=== PATIENT | male | born 1945 | race Caucasian/White ===

== ENCOUNTER → 2016-09-27 | Outpatient (CLI) | payer MEDICARE, SELFPAY ==
[~2016-09-27] MED LIST: BACTROBAN OINT22 GM EXT; CARAFATE1 GM PO; CEFUROXIME500 MG PO; DIABETA 2.5 MG2.5 MG PO; DILANTIN 100 M100 MG PO; FLEXERIL 10 MG10 MG PO; FLOMAX 0.4 MG0.4 MG PO; GLUCOTROL XL 5 M5 MG PO; GLUCOTROL5 MG PO; GLUMETZA500 MG PO; JANUVIA100 MG PO; LORCET HD 10-31 EACH PO; LORTAB 7.5-3251 EACH PO; METFORMIN HCL500 MG PO; NAPROXEN500 MG PO; NEURONTIN 300300 MG PO; NEURONTIN 400400 MG PO; NORCO 7.5-3251 EACH PO; OMEPRAZOLE20 MG PO; PRAVASTATIN SOD20 MG PO; RANITIDINE HCL300 MG PO; TIZANIDINE HCL4 MG PO
== END ==
LOC: KOH-I 10:48
DX: S46.012A Strain of muscle(s) and tendon(s) of the rotator cuff of left shoulder, initial encounter (principal); M75.102 Unspecified rotator cuff tear or rupture of left shoulder, not specified as traumatic; M19.012 Primary osteoarthritis, left shoulder; Z88.8 Allergy status to other drugs, medicaments and biological substances
CPT/HCPCS: 73221

== ENCOUNTER → 2016-11-20 | Outpatient (CLI) | payer MEDICARE, SELFPAY ==
[2016-11-20 10:18] LABS: HEMOGLOBIN 11.6 gm/dl (14.0-17.5); RED BLOOD COUNT 4.69 M/UL (4.20-5.50)
[2016-11-20 10:43] LABS: BUN/CREATININE RATIO 21 (0-10)
== END ==
LOC: OPSV2 09:30
PROVIDERS: Orthopaedic Surgery
DX: M75.102 Unspecified rotator cuff tear or rupture of left shoulder, not specified as traumatic (principal); Z53.09 Procedure and treatment not carried out because of other contraindication; R79.9 Abnormal finding of blood chemistry, unspecified; I51.9 Heart disease, unspecified; F41.9 Anxiety disorder, unspecified; F32.9 Major depressive disorder, single episode, unspecified; E11.9 Type 2 diabetes mellitus without complications; K21.9 Gastro-esophageal reflux disease without esophagitis; I25.2 Old myocardial infarction; Z88.8 Allergy status to other drugs, medicaments and biological substances; M85.80 Other specified disorders of bone density and structure, unspecified site; E78.00 Pure hypercholesterolemia, unspecified; K76.0 Fatty (change of) liver, not elsewhere classified; K57.90 Diverticulosis of intestine, part unspecified, without perforation or abscess without bleeding; K59.00 Constipation, unspecified; Z86.73 Personal history of transient ischemic attack (TIA), and cerebral infarction without residual deficits; G89.29 Other chronic pain; M19.90 Unspecified osteoarthritis, unspecified site; M41.9 Scoliosis, unspecified; M54.9 Dorsalgia, unspecified; Z79.84 Long term (current) use of oral hypoglycemic drugs; Z79.891 Long term (current) use of opiate analgesic; Z79.899 Other long term (current) drug therapy
CPT/HCPCS: 36415; 80048; 81001; 83036; 85025; 93005

== ENCOUNTER → 2016-12-13 | Outpatient (CLI) | payer MEDICARE, OTHER | LOC: RT 13:25 | DX: Z01.818 Encounter for other preprocedural examination (principal); E11.9 Type 2 diabetes mellitus without complications; J43.9 Emphysema, unspecified | CPT/HCPCS: 71020; 93005 ==

== ENCOUNTER → 2016-12-24 | Outpatient (CLI) | payer MEDICARE, OTHER | LOC: KOH-I 12-23 13:00 → CT 08:59 | DX: R10.13 Epigastric pain (principal) | CPT/HCPCS: 74150 ==

== ENCOUNTER 2021-01-22 22:22 | Emergency (ER) | payer MEDICARE ==
[~2021-01-22 22:22] MED LIST changes: +ALDACTONE 25MG25 MG PO; +AMLODIPINE BESYL5 MG PO; +ASPIRIN EC81 MG PO; +B-122500 MCG SL; +CHRONULAC20 GM/30 M PO; +CIPRO500 MG PO; +COLACE 100MG C100 MG PO; +FEOSOL325 MG PO; +FUROSEMIDE40 MG PO; +GABAPENTIN300 MG PO; +GINSENG250 MG PO; +GLUCOPHAGE500 MG PO; -GLUCOTROL5 MG PO; +INDERAL TAB 4040 MG PO; +KEFLEX CAP 500500 MG PO; +LISINOPRIL10 MG PO; +LOPRESSOR 50 MG50 MG PO; +LYRICA75 MG PO; +MECLIZINE HCL25 MG PO; +MIRALAX17 GM PO; +NAPROSYN500 MG PO; -NEURONTIN 400400 MG PO; +NEURONTIN800 MG PO; +PEPCID40 MG PO; +PRAVACHOL20 MG PO; +TESSALON PERLE100 MG PO; +VANCOMYCIN1 GM/2002 IV; +ZANTAC300 MG PO; +ZITHROMAX500 MG PO
[2021-01-23 01:16] LABS: HEMOGLOBIN 13.2 gm/dl (14.0-17.5); RED BLOOD COUNT 4.42 M/UL (4.20-5.50); WHITE BLOOD COUNT 7.1 K/UL (4.5-11.0)
== END 2021-01-23 03:50 | disposition home or self-care (01) ==
LOC: ER1 22:22
PROVIDERS: Family Medicine
DX: S40.261A Insect bite (nonvenomous) of right shoulder, initial encounter (principal); N17.9 Acute kidney failure, unspecified; F17.220 Nicotine dependence, chewing tobacco, uncomplicated; Z88.8 Allergy status to other drugs, medicaments and biological substances; W57.XXXA Bitten or stung by nonvenomous insect and other nonvenomous arthropods, initial encounter
CPT/HCPCS: 80053; 81001; 82270; 82550; 82553; 83690; 83874; 84484; 85025; 99282

== ENCOUNTER 2021-03-22 10:48 | Emergency (ER) | payer MEDICARE ==
[~2021-03-22 10:48] MED LIST changes: +GLUCOTROL5 MG PO; +LASIX40 MG PO; +NORCO 10-325 T1 EACH PO
[2021-03-22] MEDS ORDERED: CYCLOBENZAPRINE5 MG PO (14:59)
== END 2021-03-22 15:09 | disposition home or self-care (01) ==
LOC: ER1 10:48
DX: S43.402A Unspecified sprain of left shoulder joint, initial encounter (principal); S46.912A Strain of unspecified muscle, fascia and tendon at shoulder and upper arm level, left arm, initial encounter; I25.2 Old myocardial infarction; E11.9 Type 2 diabetes mellitus without complications; I10 Essential (primary) hypertension; Z88.8 Allergy status to other drugs, medicaments and biological substances; Z79.899 Other long term (current) drug therapy; X58.XXXA Exposure to other specified factors, initial encounter
CPT/HCPCS: 73030; 99283

== ENCOUNTER 2021-04-01 19:51 | Inpatient (IN) | payer MEDICARE ==
[~2021-04-01] VITALS: Ht 172.7 cm; Wt 56.2 kg
[~2021-04-01 19:51] MED LIST changes: +CYCLOBENZAPRINE5 MG PO; -GLUCOTROL5 MG PO; -LASIX40 MG PO; -NORCO 10-325 T1 EACH PO
[2021-04-01 20:31] LABS: RED BLOOD COUNT 5.09 M/UL (4.20-5.50)
[2021-04-01 21:09] LABS: BUN/CREATININE RATIO 24 (0-10)
[2021-04-02 04:49] LABS: HEMOGLOBIN 12.1 gm/dl (14.0-17.5); RED BLOOD COUNT 4.18 M/UL (4.20-5.50); WHITE BLOOD COUNT 8.8 K/UL (4.5-11.0)
[2021-04-02 15:06] LABS: ACINETOBACTER BAUMANNII Not Detected (Negative); CANDIDA ALBICANS Not Detected (Negative); CANDIDA KRUSEI Not Detected (Negative); CANDIDA TROPICALIS Not Detected (Negative); ENTEROCOCCUS Not Detected (Negative); ESCHERICHIA COLI Not Detected (Negative); HAEMOPHILUS INFLUENZAE Not Detected (Negative); KLEBSIELLA OXYTOCA Not Detected (Negative); KLEBSIELLA PNEUMONIAE Not Detected (Negative); KPC-CARBAPENEM-RESISTANCE GENE Not Detected (Negative); PROTEUS Not Detected (Negative); PSEUDOMONAS AERUGINOSA Not Detected (Negative); SERRATIA MARCESANS Not Detected (Negative); STAPHYLOCOCCUS Not Detected (Negative); STAPHYLOCOCCUS AUREUS Not Detected (Negative); STREP AGALACTIAE (GROUP B) Not Detected (Negative); STREP PYOGENES (GROUP A) Not Detected (Negative); STREPTOCOCCUS Not Detected (Negative); mecA (METHICILLIN RESIST GENE Not Detected (Negative); vanA/B (VANCOMYCIN RESIST GENE Not Detected (Negative)
[2021-04-03 04:39] LABS: HEMOGLOBIN 11.6 gm/dl (14.0-17.5); RED BLOOD COUNT 3.94 M/UL (4.20-5.50)
[2021-04-03 04:41] LABS: WHITE BLOOD COUNT 16.5 K/UL (4.5-11.0)
[2021-04-03] MEDS ORDERED: CARAFATE1 GM PO (09:05)
[2021-04-03] MEDS ORDERED: HYDROCODON-ACE1 EAC6 PO (11:19)
[2021-04-03] MEDS ORDERED: METOPROLOL TART50 MG PO (11:51)
[2021-04-03] MEDS ORDERED: NAPROXEN500 MG PO (11:53)
[2021-04-03] MEDS ORDERED: HYDROXYZINE HCL25 MG PO (11:53)
[2021-04-03] MEDS ORDERED: GLUCOTROL5 MG PO (20:43)
[2021-04-03] MEDS ORDERED: LASIX40 MG PO (22:17)
[2021-04-04 05:27] LABS: HEMOGLOBIN 11.4 gm/dl (14.0-17.5)
[2021-04-04 05:28] LABS: RED BLOOD COUNT 3.53 M/UL (4.20-5.50); WHITE BLOOD COUNT 12.2 K/UL (4.5-11.0)
[2021-04-05 05:33] LABS: HEMOGLOBIN 11.4 gm/dl (14.0-17.5); RED BLOOD COUNT 4.02 M/UL (4.20-5.50)
[2021-04-06 08:36] LABS: HEMOGLOBIN 11.1 gm/dl (14.0-17.5); RED BLOOD COUNT 3.9 M/UL (4.20-5.50)
[2021-04-06 08:37] LABS: WHITE BLOOD COUNT 11.5 K/UL (4.5-11.0)
[2021-04-07 08:24] LABS: HEMOGLOBIN 11.1 gm/dl (14.0-17.5); RED BLOOD COUNT 3.69 M/UL (4.20-5.50); WHITE BLOOD COUNT 11.5 K/UL (4.5-11.0)
[2021-04-08 05:26] LABS: HEMOGLOBIN 10.4 gm/dl (14.0-17.5); RED BLOOD COUNT 3.66 M/UL (4.20-5.50); WHITE BLOOD COUNT 9.1 K/UL (4.5-11.0)
--- NOTE | 2021-04-08 16:29 | NUR ---
04/08/21 1500 ALL SEDATION IS OFF
--- NOTE | 2021-04-08 16:30 | NUR ---
04/08/21 1600 SEDATION REMAINS OFF, OPENS RIGHT EYE SOME
--- NOTE | 2021-04-08 17:15 | NUR ---
04/08/21 1715 TUBE FEEDING OFF AT THIS TIME, REMAINS SEDATED BREATHING SOME OVER THE VENT.
--- NOTE | 2021-04-08 18:25 | NUR ---
04/08/211819 RESUME SMALL DOSE OF PRECEDEX TIL MORNING THEN WILL DECIDE TO TRY TO EXTUBATE
[2021-04-10 11:13] LABS: HBSAG SCREEN Negative (Negative); HEP A AB, IGM Indeterminate (Negative); HEP B CORE AB, IGM Negative (Negative); HEP C VIRUS AB 0.2 (0.0-0.9)
[2021-04-12 10:22] LABS: RED BLOOD COUNT 2.89 M/UL (4.20-5.50)
[2021-04-12 10:46] LABS: HEMOGLOBIN 8.3 gm/dl (14.0-17.5)
[2021-04-12 10:47] LABS: WHITE BLOOD COUNT 12.4 K/UL (4.5-11.0)
[2021-04-13 06:14] LABS: RED BLOOD COUNT 3.49 M/UL (4.20-5.50); WHITE BLOOD COUNT 18.7 K/UL (4.5-11.0)
--- NOTE | 2021-04-13 13:49 | NUR ---
AT APPROXIMATELY 1251 THE PATIENTS CARDIAC RHYTHM APPEARED TO CHANGE ON THE MONITOR. MD NOTIFIED AND EKG OBTAINED. PT DOES NOT APPEAR TO BE IN ANY DISTRESS. SEE EKG.
[2021-04-14 06:39] LABS: HEMOGLOBIN 8.8 gm/dl (14.0-17.5); WHITE BLOOD COUNT 16.9 K/UL (4.5-11.0)
[2021-04-14 06:40] LABS: RED BLOOD COUNT 3.09 M/UL (4.20-5.50)
[2021-04-15 05:22] LABS: HEMOGLOBIN 8.1 gm/dl (14.0-17.5); WHITE BLOOD COUNT 13.6 K/UL (4.5-11.0)
[2021-04-15 05:27] LABS: RED BLOOD COUNT 2.78 M/UL (4.20-5.50)
[2021-04-16 05:21] LABS: HEMOGLOBIN 8.8 gm/dl (14.0-17.5); RED BLOOD COUNT 2.99 M/UL (4.20-5.50)
[2021-04-16 06:13] LABS: WHITE BLOOD COUNT 50.8 K/UL (4.5-11.0)
== END 2021-04-16 07:59 | disposition expired | DRG 870 ==
LOC: ER1 19:51 → CCU 22:04 → CDU 22:04 → CCU 23:54
PROVIDERS: Emergency Medicine; Internal Medicine; Internal Medicine Nephrology; Internal Medicine Pulmonary Disease; Surgery; ADMIT Internal Medicine
PROC: 5A1955Z Respiratory Ventilation, Greater than 96 Consecutive Hours (ICD-10-PCS; principal; 2021-04-01)
PROC: 0BH18EZ Insertion of Endotracheal Airway into Trachea, Via Natural or Artificial Opening Endoscopic (ICD-10-PCS; 2021-04-01)
PROC: 3E0333Z Introduction of Anti-inflammatory into Peripheral Vein, Percutaneous Approach (ICD-10-PCS; 2021-04-01)
PROC: XW033E5 Introduction of Remdesivir Anti-infective into Peripheral Vein, Percutaneous Approach, New Technology Group 5 (ICD-10-PCS; 2021-04-01)
PROC: 3E02340 Introduction of Influenza Vaccine into Muscle, Percutaneous Approach (ICD-10-PCS; 2021-04-01)
PROC: 8E0ZXY6 Isolation (ICD-10-PCS; 2021-04-01)
PROC: 0DH67UZ Insertion of Feeding Device into Stomach, Via Natural or Artificial Opening (ICD-10-PCS; 2021-04-02)
PROC: B24BZZZ Ultrasonography of Heart with Aorta (ICD-10-PCS; 2021-04-02)
PROC: 5A12012 Performance of Cardiac Output, Single, Manual (ICD-10-PCS; 2021-04-16)
PROC: 3E033XZ Introduction of Vasopressor into Peripheral Vein, Percutaneous Approach (ICD-10-PCS; 2021-04-16)
DX: A41.89 Other specified sepsis (principal); U07.1 COVID-19; J12.82 Pneumonia due to coronavirus disease 2019; J69.0 Pneumonitis due to inhalation of food and vomit; J80 Acute respiratory distress syndrome; G92.8 Other toxic encephalopathy; I63.81 Other cerebral infarction due to occlusion or stenosis of small artery; I21.A1 Myocardial infarction type 2; N17.0 Acute kidney failure with tubular necrosis; I46.9 Cardiac arrest, cause unspecified; B18.9 Chronic viral hepatitis, unspecified; E87.2 Acidosis; A08.39 Other viral enteritis; E87.0 Hyperosmolality and hypernatremia; E46 Unspecified protein-calorie malnutrition; I13.0 Hypertensive heart and chronic kidney disease with heart failure and stage 1 through stage 4 chronic kidney disease, or unspecified chronic kidney disease; Z23 Encounter for immunization; R65.20 Severe sepsis without septic shock; G40.909 Epilepsy, unspecified, not intractable, without status epilepticus; B19.20 Unspecified viral hepatitis C without hepatic coma; R45.1 Restlessness and agitation; E11.22 Type 2 diabetes mellitus with diabetic chronic kidney disease; K74.60 Unspecified cirrhosis of liver; N40.0 Benign prostatic hyperplasia without lower urinary tract symptoms; I50.9 Heart failure, unspecified; E78.5 Hyperlipidemia, unspecified; I07.1 Rheumatic tricuspid insufficiency; I25.10 Atherosclerotic heart disease of native coronary artery without angina pectoris; I16.0 Hypertensive urgency; E11.65 Type 2 diabetes mellitus with hyperglycemia; D63.1 Anemia in chronic kidney disease; N18.32 Chronic kidney disease, stage 3b; E11.621 Type 2 diabetes mellitus with foot ulcer; L89.152 Pressure ulcer of sacral region, stage 2; E83.51 Hypocalcemia; E87.5 Hyperkalemia; D69.6 Thrombocytopenia, unspecified; Z79.82 Long term (current) use of aspirin; Z79.899 Other long term (current) drug therapy; Z88.8 Allergy status to other drugs, medicaments and biological substances; Z82.49 Family history of ischemic heart disease and other diseases of the circulatory system; Z90.49 Acquired absence of other specified parts of digestive tract; Z86.73 Personal history of transient ischemic attack (TIA), and cerebral infarction without residual deficits; Z98.890 Other specified postprocedural states; Z89.432 Acquired absence of left foot
CPT/HCPCS: ECHO; 0240U; 31500; 36415; 36600; 70450; 71045; 80048; 80053; 80074; 80202; 80307; 81001; 82140; 82550; 82553; 82607; 82728; 82746; 82803; 82962; 83605; 83615; 83690; 83735; 83874; 83880; 84100; 84132; 84439; 84443; 84484; 85025; 85027; 85379; 85384; 85610; 85730; 86140; 87040; 87070; 87077; 87086; 87150; 87186; 87205; 87449; 92950; 93005; 93306; 94002; 94003; 94760; 96374; 96375; 96376; 99285; A6212; C9113; G0480; J0171; J0360; J0461; J0610; J0696; J1100; J1160; J1650; J1940; J1953; J2060; J2370; J2543; J2704; J3010; J3370; J3486; J7030; J7040; J7050; J7070; P9047